=== PATIENT | female | born 1985 | race Caucasian/White ===

== ENCOUNTER 2024-04-07 16:25 | Emergency (ER) | payer OTHER ==
--- NOTE | 2024-04-07 17:23 | RAD REPORT ---
EXAM DESCRIPTION: CT - Head Brain Wo Cont - 04/07/2024 5:15 pm CLINICAL HISTORY: SEIZURE Headache, drowsiness COMPARISON: <Comparisons> TECHNIQUE: All CT scans are performed using dose optimization technique as appropriate and may inclu de automated exposure control or mA/KV adjustment according to patient size. FINDINGS: No intracranial hemorrhage, hydrocephalus or extra-axial fluid collection.Moderate brain a trophy.No areas of brain edema or evidence of midline shift. The paranasal sinuses and mastoids are clear. The calvarium is intact. IMPRESSION: No acute intracranial abnormality.
[2024-04-07 17:54] LABS: Absolute Lymphocytes (CBC) 0.4 K/uL (0.7-4.9); Absolute Monocytes 0.2 K/uL (0.1-1.3); Absolute Neutrophil 3.3 K/uL (1.8-8.0); Basophils % 0.5 % (0-1.3); Eosinophils % 0.5 % (0-4.4); Hematocrit 47.4 % (36.0-45.0); Lymphocytes % 10.3 % (15.3-44.8); MCH 31.7 pg (27.0-35.0); MCHC 33.9 g/dL (32.0-36.0); MCV 93.5 fL (80-100); MPV 7.9 fL (7.6-11.3); Monocytes % 4.5 % (3.3-12.3); Neutrophils % 84.2 % (41.7-73.7); Nucleated Red Blood Cells % 0.2 % (0-0); Platelets 50 thou/uL (152-406); RBC Red Blood Cell Count 5.07 M/uL (3.86-4.86); Red Cell Distribution Width 14.1 % (12.1-15.2)
[2024-04-07 18:12] LABS: Albumin 4.2 g/dL (3.4-5.0); Anion Gap 11.2 mEq/L (5.0-15.0); Bilirubin Indirect, Calculated 1.9 mg/dL (0.2-0.8); Bilirubin Total 2.9 mg/dL (0.2-1.0); Globulin 4.1 g/dL (2.3-3.5); Potassium 3.2 mEq/L (3.5-5.1); Protein, Total 8.3 g/dL (6.4-8.2); Troponin High Sensitivity 41.5 pg/mL (<58.9)
[2024-04-07] MEDS ORDERED: LORazepam 2 MG/ML VIAL ONE (18:40)
[2024-04-07 18:49] LABS: Teardrop Cell 2+
[2024-04-07 18:50] LABS: Blood Morphology Comment NOTED (NOT SEEN); Platelet Estimate DECR; White Blood Cell Scan OK (OK)
--- NOTE | 2024-04-07 19:35 | EDPHYS ---
Physician Documentation [facility] Name: Hannah Stein Age: 39 yrs Sex: Female : 1985 Arrival Date: 04/07/2024 Time: 16:25 Bed 14 Private MD: ED Physician Hank White HPI: 04/07 16:55 This 39 yrs old Male presents to ER via Ambulatory with complaints of Seizure. rt 16:55 Patient with no prior medical history is presents to the ED with reported seizure-like rt activity. Patient has been moving, has not been eating well or has been sleeping well. She lie down to take a nap, the woke up, finding her stiff person up on the side of the bed. States that the patient was blue. States that this episode last about 15 minutes per his report and resolved. Patient was initially confused, then had return to baseline mental status. She has no physical complaints currently. Denies other acute complaints at this time, symptoms are moderate in severity, no other aggravating alleviating factors.. RECRUITMENT INTERN: 19:54 unknown al5 Historical: - Allergies: 16:40 No Known Allergies; hb - Home Meds: 16:40 Lexapro Oral [Active]; Wellbutrin Oral [Active]; hb - PMHx: 16:35 Depression; hb - PSHx: 16:35 None; hb - Immunization history:: Adult Immunizations up to date. - Infectious Disease History:: Denies. - Social history:: Smoking status: Patient/guardian denies using tobacco. - Family history:: not pertinent. ROS: 16:55 Constitutional: Negative for fever, chills, and weight loss, Cardiovascular: Negative rt for chest pain, palpitations, and edema, Respiratory: Negative for shortness of breath, cough, wheezing, and pleuritic chest pain, Abdomen/GI: Negative for abdominal pain, nausea, vomiting, diarrhea, and constipation, MS/Extremity: Negative for injury and deformity, Skin: Negative for injury, rash, and discoloration, 16:55 Neuro: Positive for loss of consciousness, seizure activity, Exam: 16:55 Constitutional: This is a well developed, well nourished patient who is awake, alert, rt and in no acute distress. Head/Face: Normocephalic, atraumatic. Chest/axilla: Normal chest wall appearance and motion. Nontender with no deformity. No lesions are appreciated. Cardiovascular: Regular rate and rhythm with a normal S1 and S2. No gallops, murmurs, or rubs. Normal PMI, no JVD. No pulse deficits. Respiratory: Lungs have equal breath sounds bilaterally, clear to auscultation and percussion. No rales, rhonchi or wheezes noted. No increased work of breathing, no retractions or nasal flaring. Abdomen/GI: Soft, non-tender, with normal bowel sounds. No distension or tympany. No guarding or rebound. No evidence of tenderness throughout. Skin: Warm, dry with normal turgor. Normal color with no rashes, no lesions, and no evidence of cellulitis. MS/ Extremity: Pulses equal, no cyanosis. Neurovascular intact. Full, normal range of motion. Neuro: Awake and alert, GCS 15, oriented to person, place, time, and situation. Cranial nerves II-XII grossly intact. Motor strength 5/5 in all extremities. Sensory grossly intact. Cerebellar exam normal. Normal gait. 17:59 ECG was reviewed by the Attending Physician. rt Vital Signs: 16:34 BP 150 / 88; Pulse 114; Resp 18; Temp 97.7(TE); Pulse Ox 100% on R/A; Weight 72.57 kg; hb Height 5 ft. 6 in. ; Pain 0/10; 17:42 BP 122 / 84; Pulse 83; Resp 18; Pulse Ox 99% on R/A; Pain 0/10; ld1 18:47 BP 134 / 86; Pulse 75; Resp 18; Pulse Ox 96% on R/A; ld1 19:16 BP 146 / 90; Pulse 96; Resp 18; Pulse Ox 97% on R/A; al5 16:34 Body Mass Index 25.82 (72.57 kg, 167.64 cm) hb 16:34 Pain Scale: Adult hb 17:42 Pain Scale: Adult ld1 Malissa Coma Score: 19:53 Eye Response: spontaneous(4). Motor Response: obeys commands(6). Verbal Response: al5 oriented(5). Total: 15. MDM: 16:34 Patient medically screened. rt 19:36 Differential diagnosis: Seizure, convulsive syncope, dysrhythmia. Data reviewed: vital rt signs, nurses notes, lab test result(s), radiologic studies. Consideration of Admission/Observation Escalation of care including admission/observation considered. Patient has returned to baseline, well-appearing, no focal neurodeficits, EKG, CT of the head are unremarkable. Patient has no patient transaminases, bilirubin, she states that this is pre-existing, due to alcohol abuse. She did stop drinking 2 weeks ago but is not tachycardic, has no physical signs or symptoms of acute alcohol withdrawal syndrome. Does not require mission at this time. Patient to follow-up with neurology as an outpatient.. I considered the following discharge prescriptions or medication management in the emergency department Medications were administered in the Emergency Department. See MAR. Independent interpretation of the following test(s) in the Emergency Department CT Scan: My interpretation is No intracranial hemorrhage seen on my interpretation of CT scan images. Counseling: I had a detailed discussion with the patient and/or guardian regarding the historical points, exam findings, and any diagnostic results supporting the discharge/admit diagnosis, lab results, radiology results, the need for outpatient follow up, to return to the emergency department if symptoms worsen or persist or if there are any questions or concerns that arise at home. 04/07 16:50 Order name: Basic Metabolic Panel; Complete Time: 18:19 rt 04/07 16:50 Order name: CBC with Diff; Complete Time: 19:02 rt 04/07 16:50 Order name: LFT's; Complete Time: 18:19 rt 04/07 16:50 Order name: Magnesium; Complete Time: 18:19 rt 04/07 16:50 Order name: Troponin HS; Complete Time: 18:19 rt 04/07 16:50 Order name: Test, Serum; Complete Time: 18:39 rt 04/07 18:08 Order name: CBC Smear Scan; Complete Time: 19:02 EDMS 04/07 16:50 Order name: CT Head Brain wo Cont; Complete Time: 17:25 rt 04/07 16:50 Order name: EKG; Complete Time: 16:50 rt 04/07 16:50 Order name: Cardiac monitoring; Complete Time: 17:46 rt 04/07 16:50 Order name: EKG - Nurse/Tech; Complete Time: 17:46 rt 04/07 16:50 Order name: IV Saline Lock; Complete Time: 17:42 rt 04/07 16:50 Order name: Labs collected and sent; Complete Time: 17:42 rt 04/07 16:50 Order name: O2 Per Protocol; Complete Time: 16:55 rt 04/07 16:50 Order name: O2 Sat Monitoring; Complete Time: 16:55 rt EC:59 Rate is 84 beats/min. Rhythm is regular, Normal Sinus Rhythm with No ectopy. QRS [place] rt is Normal. MI interval is normal. QRS interval is normal. QT interval is normal. No Q waves. T waves are Normal. No ST changes noted. Interpreted by me. Administered Medications: 18:43 Drug: Ativan IVP 1 mg IVP once Route: IVP; Site: right antecubital; ld1 19:53 Follow up: Response: No adverse reaction al5 Disposition Summary: 04/07/24 19:34 Discharge Ordered Notes: Location: Home rt Problem: new rt Symptoms: have improved rt Condition: Stable rt Diagnosis - Other seizures rt Followup: rt - With: Jerome Anglin MD - When: 2 - 3 days - Reason: Discharge Instructions: - Discharge Summary Sheet rt - Seizure, Adult rt Forms: - Medication Reconciliation Form rt - Antibiotic Education rt - Prescription Opioid Use rt - Patient Portal Instructions rt - Leadership Thank You Letter rt Signatures: Dispatcher [employer] Esha Huff RN RN Emma Farooq RN RN ld1 Hank White MD MD rt Hazel Hedrick RN al5 Corrections: (The following items were deleted from the chart) 16:41 16:35 Allergies: No Known Allergies; hb hb 16:41 16:40 Allergies: Lexapro; hb hb 16:41 16:40 Allergies: Wellbutrin; hb hb
--- NOTE | 2024-04-07 19:35 | ER ---
Nurse's Notes [facility] Name: Hannah Stein Age: 39 yrs Sex: Female : 1985 Arrival Date: 04/07/2024 Time: 16:25 Bed 14 Private MD: Diagnosis: Other seizures Presentation: 04/07 16:34 Chief complaint: reports seizure activity about 1 hour ago that lasted approx hb 15 minutes. Pt ambulated to triage with steady gait, AOx4. Coronavirus screen: At this time, the client does not indicate any symptoms associated with coronavirus-19. Ebola Screen: No symptoms or risks identified at this time. Initial Sepsis Screen: Does the patient meet any 2 criteria? No. Patient's initial sepsis screen is negative. Does the patient have a suspected source of infection? No. Patient's initial sepsis screen is negative. Risk Assessment: Do you want to hurt yourself or someone else? Patient reports no desire to harm self or others. Onset of symptoms was April 07, 2024. 16:34 Method Of Arrival: Ambulatory hb 16:34 Acuity: TONY 3 hb Triage Assessment: 19:53 General: Appears in no apparent distress. Behavior is calm, cooperative. Pain: Denies al5 pain. EENT: No deficits noted. Neuro: Level of Consciousness is awake, alert, obeys commands, Oriented to person, place, time, situation. Cardiovascular: Patient's skin is warm and dry. Respiratory: Airway is patent Respiratory effort is even, unlabored, Respiratory pattern is regular, symmetrical. GI: No signs and/or symptoms were reported involving the gastrointestinal system. : No signs and/or symptoms were reported regarding the genitourinary system. Derm: Skin is pink, warm \T\ dry. Musculoskeletal: No signs and/or symptoms reported regarding the musculoskeletal system. ROOFER METAL: 19:54 unknown al5 Historical: - Allergies: 16:40 No Known Allergies; hb - Home Meds: 16:40 Lexapro Oral [Active]; Wellbutrin Oral [Active]; hb - PMHx: 16:35 Depression; hb - PSHx: 16:35 None; hb - Immunization history:: Adult Immunizations up to date. - Infectious Disease History:: Denies. - Social history:: Smoking status: Patient/guardian denies using tobacco. - Family history:: not pertinent. Screenin:45 [facility] ED Fall Risk Assessment (Adult) History of falling in the last 3 months, ld1 including since admission No falls in past 3 months (0 pts) Confusion or Disorientation No (0 pts) Intoxicated or Sedated No (0 pts) Impaired Gait No (0 pts) Mobility Assist Device Used No (0 pt) Altered Elimination No (0 pt) Score/Fall Risk Level 0 - 2 = Low Risk Oriented to surroundings, Maintained a safe environment, Educated pt \T\ family on fall prevention, incl call for assistance when getting out of bed, Assessed \T\ reinforced patient's understanding of fall precautions, Provided non-skid footwear, Hourly rounding (assess needs \T\ fall precautionary measures) done, Used ambulatory aids as needed (educated on \T\ assisted with), Used gait belt as appropriate. Abuse screen: Denies threats or abuse. Denies injuries from another. Nutritional screening: No deficits noted. Tuberculosis screening: No symptoms or risk factors identified. Assessment: 17:42 General: Appears in no apparent distress. comfortable, Behavior is calm, cooperative, ld1 appropriate for age. Pain: Denies pain. Neuro: Level of Consciousness is awake, alert, obeys commands, Oriented to person, place, time, situation, Appropriate for age. Neuro: Seizure activity reported prior to arrival. Cardiovascular: Capillary refill < 3 seconds Patient's skin is warm and dry. Respiratory: Airway is patent Respiratory effort is even, unlabored. GI: Abdomen is round non-distended. : No signs and/or symptoms were reported regarding the genitourinary system. EENT: No signs and/or symptoms were reported regarding the EENT system. Derm: No signs and/or symptoms reported regarding the dermatologic system. Musculoskeletal: No signs and/or symptoms reported regarding the musculoskeletal system. 18:35 Reassessment: Pt c/o anxiety. Notified ERP. See MAR for orders. ld1 18:47 Reassessment: Patient appears in no apparent distress at this time. No changes from ld1 previously documented assessment. Patient and/or family updated on plan of care and expected duration. Pain level reassessed. Patient is alert, oriented x 3, equal unlabored respirations, skin warm/dry/pink. 19:20 Reassessment: Patient appears in no apparent distress at this time. No changes from al5 previously documented assessment. Patient and/or family updated on plan of care and expected duration. Pain level reassessed. Patient is alert, oriented x 3, equal unlabored respirations, skin warm/dry/pink. Patient states feeling better. Vital Signs: 16:34 BP 150 / 88; Pulse 114; Resp 18; Temp 97.7(TE); Pulse Ox 100% on R/A; Weight 72.57 kg; hb Height 5 ft. 6 in. ; Pain 0/10; 17:42 BP 122 / 84; Pulse 83; Resp 18; Pulse Ox 99% on R/A; Pain 0/10; ld1 18:47 BP 134 / 86; Pulse 75; Resp 18; Pulse Ox 96% on R/A; ld1 19:16 BP 146 / 90; Pulse 96; Resp 18; Pulse Ox 97% on R/A; al5 16:34 Body Mass Index 25.82 (72.57 kg, 167.64 cm) hb 16:34 Pain Scale: Adult hb 17:42 Pain Scale: Adult ld1 [place] Coma Score: 19:53 Eye Response: spontaneous(4). Motor Response: obeys commands(6). Verbal Response: al5 oriented(5). Total: 15. ED Course: 16:28 Patient arrived in ED. ra3 16:32 Hank White MD is Attending Physician. rt 16:35 Triage completed. hb 16:35 Arm band placed on. hb 16:38 Emma Farooq, RN is Primary Nurse. ld1 17:17 CT Head Brain wo Cont In Process Unspecified. EDMS 17:45 Patient has correct armband on for positive identification. Placed in gown. Bed in low ld1 position. Call light in reach. Side rails up X2. ekg monitor on. Pulse ox on. NIBP on. Door closed. Noise minimized. Warm blanket given. 17:45 Patient has correct armband on for positive identification. Seizure precautions ld1 initiated. 17:45 No provider procedures requiring assistance completed. Inserted saline lock: 20 gauge ld1 in right antecubital area, using aseptic technique. Blood collected. Flushed with 10 mL NS. 19:04 Primary Nurse role handed off by Emma Farooq, SHIKHA al5 19:04 Hazel Hedrick RN is Primary Nurse. al5 19:34 Jerome Anglin MD is Referral Physician. rt 19:54 Provided Education on: discharge follow up. al5 19:54 IV discontinued, intact, bleeding controlled, No redness/swelling at site. Pressure al5 dressing applied. Administered Medications: 18:43 Drug: Ativan IVP 1 mg IVP once Route: IVP; Site: right antecubital; ld1 19:53 Follow up: Response: No adverse reaction al5 Medication: 17:45 VIS not applicable for this client. ld1 Outcome: 19:34 Discharge ordered by MD. rt 19:54 Discharged to home ambulatory, with significant other, al5 19:54 Condition: good 19:54 Discharge instructions given to patient, Instructed on discharge instructions, follow up and referral plans. Demonstrated understanding of instructions, follow-up care, 19:55 Patient left the ED. al5 Signatures: Dispatcher [employer] EDMS Esha Whitehead RN RN hb Sims, Lauren, RN RN ld1 Hank White MD MD rt Suri Oconnor ra3 Hazel Hedrick RN RN al5 Corrections: (The following items were deleted from the chart) 16:41 16:35 Allergies: No Known Allergies; hb hb 16:41 16:40 Allergies: Lexapro; hb hb 16:41 16:40 Allergies: Wellbutrin; hb hb
[2024-04-07 20:02] VITALS: TEMP 97.7
[2024-04-07 20:05] VITALS: BP 146/90; O2SAT 97
--- NOTE | 2024-04-10 13:53 | EKG ---
Test Date: 2024-04-07 Test Time: 17:49:45 Captain Cannery Tender: VERONICA MEASUREMENT RESULTS: Intervals: Rate: 84 WI: 158 QRSD: 86 QT: 404 QTc: 477 Bryan: P: 53 WI: 158 QRS: 27 T: 69 INTERPRETIVE STATEMENTS: Normal sinus rhythm Normal ECG No previous ECG available for comparison Electronically Signed On 04-10-24 13:47:01 CDT by Humberto Lopez
== END 2024-04-07 19:55 | disposition home or self-care (01) ==
LOC: EDSEX 16:25 → ER 16:25
DX: R56.9 Unspecified convulsions (principal); F32.A Depression, unspecified
CPT/HCPCS: 36415; 70450; 80048; 80076; 83735; 84484; 84703; 85025; 93005; 96374; 99285